=== PATIENT | male | born 2000 | race Caucasian/White ===

== ENCOUNTER 2022-06-01 10:26 | Emergency (ER) | payer OTHER ==
--- NOTE | 2022-06-01 11:25 | XR ---
EXAMINATION TYPE: XR chest 2V DATE OF EXAM: 06/01/2022 10:46 AM COMPARISON: Chest radiographs from TECHNIQUE: XR chest 2V Frontal and lateral views of the chest. CLINICAL INDICATION:Male, 22 years old with history of Cough; FINDINGS: Lungs/Pleura: There is no evidence of pleural effusion, focal consolidation, or pneumothorax. Pulmonary vascularity: Unremarkable. Heart/mediastinum: Cardiomediastinal silhouette is unremarkable. Musculoskeletal: No acute osseous pathology. IMPRESSION: No acute cardiopulmonary disease/process.
[2022-06-01] MEDS ORDERED: IPRATROPIUM-ALBUTEROL 3 ML NEB INHALATION STA (11:48)
--- NOTE | 2022-06-01 12:31 | ED ---
General Adult HPI - General Chief complaint: Upper Respiratory Infection Stated complaint: chest pain Time Seen by Provider: 06/01/22 11:09 Source: patient, RN notes reviewed Mode of arrival: ambulatory Limitations: no limitations - History of Present Illness Initial comments: 22-year-old male presents emergency Department chief complaint of cough conges tion shortness breath. Patient states been sick last few days. Patient states it's worse when he smokes or take a deep inspiration. Patient states he [place], smokes cigarettes, smokes marijuana. Patient states he has pain in his ribs when he takes deep breath denies any leg pain No abdominal complaints. - Related Data Previous Rx's Medication Instructions Recorded Albuterol Sulfate [Proair Hfa] 1 - 2 puff INHALATION Q4HR PRN 06/01/22 #8.5 gm Azithromycin [Zithromax Z Pack] 0 tab PO DIRECTED #6 tab 06/01/22 predniSONE 50 mg PO DAILY #5 tab 06/01/22 Allergies Allergy/AdvReac Type Severity Reaction Status Date / Time No Known Allergies Allergy Verified 06/01/22 10:30 Review of Systems ROS Statement: Those systems with pertinent positive or pertinent negative responses have been documented in the HPI. ROS Other: All systems not noted in ROS Statement are negative. Past Medical History Past Medical History: No Reported History History of Any Multi-Drug Resistant Organisms: None Reported Past Surgical History: No Surgical Hx Reported Past Psychological History: No Psychological Hx Reported Smoking Status: Current every day smoker Past Alcohol Use History: None Reported Past Drug Use History: Marijuana General Exam Limitations: no limitations General appearance: alert, in no apparent distress Head exam: Present: atraumatic, normocephalic, normal inspection Eye exam: Present: normal appearance, PERRL, EOMI. Absent: scleral icterus, conjunctival injection, periorbital swelling ENT exam: Present: normal exam, normal oropharynx, mucous membranes moist Neck exam: Present: normal inspection, full ROM. Absent: tenderness, meningismus, lymphadenopathy Respiratory exam: Present: wheezes, chest wall tenderness. Absent: normal lung sounds bilaterally, respiratory distress, rales, rhonchi, stridor Cardiovascular Exam: Present: regular rate, normal rhythm, normal heart sounds. Absent: systolic murmur, diastolic murmur, rubs, gallop, clicks Course Vital Signs 06/01/22 06/01/22 06/01/22 10:28 12:10 12:23 Temperature 98 F Pulse Rate 83 74 80 Respiratory 20 Rate Blood Pressure 132/77 O2 Sat by Pulse 97 Oximetry Medical Decision Making - Medical Decision Making Chest x-rays unremarkable. Patient has diffuse wheezing consistent with acute bronchitis. patient for smoking cessation for greater than 3 minutes patient was discharged on prednisone, albuterol, azithromycin. - Lab Data Lab Results 06/01/22 Range/Units 10:31 Coronavirus (PCR) Not Detected (Not Detectd) Disposition Clinical Impression: Acute bronchitis with bronchospasm Disposition: HOME SELF-CARE Condition: Stable Instructions (If sedation given, give patient instructions): Upper Respiratory Infection (ED) Additional Instructions: Please return to the Emergency Department if symptoms worsen or any other concerns. Prescriptions: predniSONE 50 mg PO DAILY #5 tab Albuterol Sulfate [Proair Hfa] 1 - 2 puff INHALATION Q4HR PRN #8.5 gm PRN Reason: difficulty in breathing Azithromycin [Zithromax Z Pack] 0 tab PO DIRECTED #6 tab Is patient prescribed a controlled substance at d/c from ED?: No Referrals: Hemanth Downs MD [Primary Care Provider] - 1-2 days Time of Disposition: 12:31
[2022-06-01 13:23] VITALS: BP 125/72; PULSE 75; RESP 18; TEMP 98.4
== END 2022-06-01 13:23 | disposition home or self-care (01) ==
LOC: EC 10:26
DX: J98.01 Acute bronchospasm (principal); Z20.822 Contact with and (suspected) exposure to COVID-19; F17.210 Nicotine dependence, cigarettes, uncomplicated
CPT/HCPCS: 71046; 87635; 94640; 99285

== ENCOUNTER 2023-01-03 21:38 | Emergency (ER) | payer OTHER ==
[2023-01-03 21:41] VITALS: PULSE 92; RESP 18; TEMP 98.9
[2023-01-03] MEDS ORDERED: KETOROLAC 15 MG/ML 1 ML VIAL IM STA (22:49)
--- NOTE | 2023-01-03 22:49 | ED ---
ENT HPI - General Chief complaint: Dental/Oral Stated complaint: Abcess in mouth Time Seen by Provider: 01/03/23 22:37 Source: patient, RN notes reviewed Mode of arrival: ambulatory Limitations: no limitations - History of Present Illness Initial comments: Patient is a 22-year-old male presenting to the emergency room with complaints of dental pain and swelling along with eye swelling that has been going on for approximately 24-48 hours with significant worsening throughout the day today. He reports known dental cavities with lack of dental follow-up. He is not currently on any antibiotic therapy for dental abscess. He reports nausea and vomiting associated with his pain and dental swelling. He denies any difficulty chewing or swallowing. He denies any chest pain, abdominal pain, headache, dizziness, fevers, chills, blurred or double vision. He denies any significant past medical history. - Related Data Previous Rx's Medication Instructions Recorded Albuterol Sulfate [Proair Hfa] 1 - 2 puff INHALATION Q4HR PRN 06/01/22 #8.5 gm Azithromycin [Zithromax Z Pack] 0 tab PO DIRECTED #6 tab 06/01/22 predniSONE 50 mg PO DAILY #5 tab 06/01/22 Allergies Allergy/AdvReac Type Severity Reaction Status Date / Time No Known Allergies Allergy Verified 01/03/23 21:38 Review of Systems ROS Statement: Those systems with pertinent positive or pertinent negative responses have been documented in the HPI. ROS Other: All systems not noted in ROS Statement are negative. Past Medical History Past Medical History: No Reported History History of Any Multi-Drug Resistant Organisms: None Reported Past Surgical History: No Surgical Hx Reported Past Psychological History: No Psychological Hx Reported Smoking Status: Current every day smoker Past Alcohol Use History: None Reported Past Drug Use History: Marijuana General Exam Limitations: no limitations General appearance: alert, in no apparent distress Head exam: Present: atraumatic, normocephalic, normal inspection Eye exam: Present: normal appearance, PERRL, EOMI, periorbital swelling (lower right). Absent: scleral icterus, conjunctival injection, nystagmus Expanded Teeth exam: Present: dental caries, fractured tooth # (Multiple upper and lower), dental tenderness # (Right upper first bicuspid region), gingival enlargement, other (Gingival abscess with purulent drainage from right upper gum. Foul odor noted.) Neck exam: Present: normal inspection, full ROM, lymphadenopathy. Absent: tenderness Respiratory exam: Present: normal lung sounds bilaterally. Absent: respiratory distress, wheezes, rales, rhonchi, stridor Cardiovascular Exam: Present: regular rate, normal rhythm, normal heart sounds. Absent: systolic murmur, diastolic murmur, rubs, gallop, clicks GI/Abdominal exam: Present: soft, normal bowel sounds. Absent: distended, tenderness, guarding, rebound, rigid Extremities exam: Present: normal inspection. Absent: pedal edema, joint swelling Back exam: Present: normal inspection Neurological exam: Present: alert, oriented X3, CN II-XII intact Psychiatric exam: Present: normal affect, normal mood Skin exam: Present: other (Oral abnormalities as stated above) Course Vital Signs 01/03/23 01/04/23 21:38 01:30 Temperature 98.9 F Pulse Rate 92 92 Respiratory 18 Rate Blood Pressure 139/85 143/94 O2 Sat by Pulse 99 99 Oximetry Medical Decision Making - Medical Decision Making Was pt. sent in by a medical professional or institution (, PA, INK BLENDER, urgent care, hospital, or long term...) When possible be specific @ -No Did you speak to anyone other than the patient for history (EMS, parent, family, police, friend...)? What history was obtained from this source @ -No Did you review nursing and triage notes (agree or disagree)? Why? @ -I reviewed and agree with nursing and triage notes Were old charts reviewed (outside hosp., previous admission, EMS record, old EKG, old radiological studies, urgent care reports/EKG's, long term records)? Report findings @ -No old charts were reviewed Differential Diagnosis (chest pain, altered mental status, abdominal pain women, abdominal pain men, vaginal bleeding, weakness, fever, dyspnea, syncope, headache, dizziness, GI bleed, back pain, seizure, CVA, palpatations, mental health, musculoskeletal)? @ -Differential Dental Pain: Gingivitis, dental abscess, gingivitis abscess, acute pulpitis, dental caries, tooth fracture, impacted molar, toothache, acute necrotizing ulcerative gingivitis, oral herpes simplex infection, candidiasis of the mouth, aphyhous ulcer... this is not meant to be an all-inclusive list. EKG interpreted by me (3pts min.). @ -None done X-rays interpreted by me (1pt min.). @ -None done CT interpreted by me (1pt min.). @ -CT of sinuses: Extensive peritonsillar disease with periapical changes to first bicuspid.. Nasal sinus disease of the right maxillary. Per radiologist report osseous erosion of medial ridge noted. U/S interpreted by me (1pt. min.). @ -None done What testing was considered but not performed or refused? (CT, X-rays, U/S, labs)? Why? @ -None What meds were considered but not given or refused? Why? @ -None Did you discuss the management of the patient with other professionals (professionals i.e. DrKlaus, PA, INK BLENDER, lab, RT, psych nurse, high school social studies teacher, obgyn nurse, teacher, chief information security officer, casework specialist)? Give summary @ -Yes spoke with Dr. Swan regarding osseous erosion and dental abscess recommending admission. He is requesting oral surgeon consult and exceptions prior to admission acceptance. Spoke with Dr. Peoples on for oral surgery who is accepting of consult and admission. We'll place admission orders with consult to oral surgery. He advised okay to continue IV clindamycin at this time. Was smoking cessation discussed for >3mins.? @ -No Was critical care preformed (if so, how long)? @ -No Were there social determinants of health that impacted care today? How? (Homelessness, low income, unemployed, alcoholism, drug addiction, transportation, low edu. Level, literacy, decrease access to med. care, skilled nursing, rehab)? @ -No Was there de-escalation of care discussed even if they declined (Discuss DNR or withdrawal of care, Hospice)? DNR status @ -No What co-morbidities impacted this encounter? (DM, HTN, Smoking, COPD, CAD, Cancer, CVA, ARF, Chemo, Hep., AIDS, mental health diagnosis, sleep apnea, morbid obesity)? @ -None Was patient admitted / discharged? Hospital course, mention meds given and route, prescriptions, significant lab abnormalities, going to OR and other pertinent info. @ -22-year-old male presented to the emergency room with complaints of dental pain and right-sided facial swelling ongoing for 24-48 hours with associated nausea. Extensive tooth decay and draining. Apical abscess to right upper bicuspid region noted. Due to lower orbit edema will proceed with computed tomography scan of the sinuses and give IV clindamycin along with Toradol for pain and swelling. Computed tomography scan demonstrates periodontal disease with periapical tooth abscess and osseous erosion of the medial ridge along with peristernal disease. CBC with slightly elevated hematocrit 38.8 otherwise no abnormalities, BMP normal. Advise due to osseous erosion recommended admission for IV antibiotics and oral surgeon consult. Patient is apprehensive about staying in the hospital but agreeable. Having nausea and vomiting will give Zofran for nausea. Spoke with Dr. Swan regarding admission he advise consult to oral surgery for acceptance first prior to admission. Oral surgeon except consult and admission. Will admit patient in stable condition for dental abscess to medical surgical unit under Dr. Swan with oral surgery consult. Undiagnosed new problem with uncertain prognosis? @ -No Drug Therapy requiring intensive monitoring for toxicity (Heparin, Nitro, Insulin, Cardizem)? @ -No Were any procedures done? @ -No Diagnosis/symptom? @ -Periapical tooth abscess right first bicuspid Acute, or Chronic, or Acute on Chronic? @ -Acute Uncomplicated (without systemic symptoms) or Complicated (systemic symptoms)? @ -Complicated Side effects of treatment? @ -No Exacerbation, Progression, or Severe Exacerbation? @ -No Poses a threat to life or bodily function? How? (Chest pain, [place], [place], pneumonia, PE, COPD, DKA, ARF, appy, cholecystitis, CVA, Diverticulitis, Homicidal, Suicidal, threat to staff... and all critical care pts) @ -Yes, risk for further osseous erosion, osteomyelitis and septic shock. Case discussed with Dr. Armstrong. - Lab Data Result diagrams: 01/03/23 23:30 01/03/23 23:30 Lab Results 01/03/23 01/03/23 Range/Units 23:30 23:30 WBC 8.0 (3.8-10.6) k/uL RBC 4.37 (4.30-5.90) m/uL Hgb 13.2 (13.0-17.5) gm/dL Hct 38.8 L (39.0-53.0) % MCV 88.7 (80.0-100.0) fL MCH 30.2 (25.0-35.0) pg MCHC 34.1 (31.0-37.0) g/dL RDW 12.5 (11.5-15.5) % Plt Count 218 (150-450) k/uL MPV 7.2 Neutrophils % 70 % Lymphocytes % 22 % Monocytes % 5 % Eosinophils % 1 % Basophils % 0 % Neutrophils # 5.6 (1.3-7.7) k/uL Lymphocytes # 1.8 (1.0-4.8) k/uL Monocytes # 0.4 (0-1.0) k/uL Eosinophils # 0.1 (0-0.7) k/uL Basophils # 0.0 (0-0.2) k/uL Sodium 139 (137-145) mmol/L Potassium 4.2 (3.5-5.1) mmol/L Chloride 104 (98-107) mmol/L Carbon Dioxide 25 (22-30) mmol/L Anion Gap 10 mmol/L BUN 17 (9-20) mg/dL Creatinine 0.91 (0.66-1.25) mg/dL Est GFR (CKD-EPI)AfAm >90 (>60 ml/min/1.73 sqM) Est GFR (CKD-EPI)NonAf >90 (>60 ml/min/1.73 sqM) Glucose 86 (74-99) mg/dL Calcium 9.2 (8.4-10.2) mg/dL - Radiology Data Radiology results: report reviewed, image reviewed Disposition Clinical Impression: Dental abscess Disposition: [facility]MITTED [facility] TO [facility] Condition: Stable Is patient prescribed a controlled substance at d/c from ED?: No Time of Disposition: 03:01
[2023-01-03] MEDS ORDERED: CLINDAMYCIN 900 MG in DEXTROSE 5% IN WATER 50 ML IVPB ONE ×2 (23:00)
--- NOTE | 2023-01-03 23:27 | CT ---
EXAMINATION TYPE: CT sinus wo con CT DLP: 371.4 mGycm, Automated exposure control for dose reduction was used. DATE OF EXAM: 01/03/2023 11:02 PM COMPARISON: None. CLINICAL INDICATION:Male, 22 years old with history of dental abscess, dental abscess TECHNIQUE: Multiple thin axial images were obtained through the paranasal sinuses without the use of IV contrast. Additional coronal and sagittal reformatted images were submitted for evaluation. Contrast used: none Oral contrast used: none FINDINGS: The frontal sinuses and frontal ethmoidal recesses are clear. There is mild mucosal thickening of the left maxillary sinus. The sphenoid sinuses are relatively clear. Mild scattered ethmoidal air cell m ucosal thickening. Right maxillary sinus demonstrates significant mucosal thickening with multiple periapical lucencies of the roots of the teeth predominantly in the right upper maxilla alveolar ridge. One tooth in parti cular the right upper first bicuspid demonstrates significant periapical lucency with osseous erosion extending through the maxilla alveolar ridge. Evaluation for organizing fluid collection limited wit hout IV contrast. Suspected phlegmonous change and early abscess formation on series 201 image 14. Th ere is fat stranding changes involving the right cheek. There is periapical lucency involving the fir st bicuspid on the left upper ridge with osseous erosion through the fibular ridge into the soft tiss ues. No obvious organizing fluid collection on this left upper side. The remaining visualized portions of the brain are grossly unremarkable. IMPRESSION: 1. Periodontal disease with periapical lucency involving the right upper first bicuspid with osseous erosion through the medial ridge likely representing periapical tooth abscess. Evaluation for absces s is limited without IV contrast. Additional scattered parenchymal disease. Dental consultation recom mended. 2. Paranasal sinus disease predominantly involving the right maxilla likely secondary to #1.
[2023-01-03 23:52] LABS: Basophils % (A) 0 %; Eosinophils # (A) 0.1 k/uL (0-0.7); Eosinophils % (A) 1 %; HCT 38.8 % (39.0-53.0); HGB 13.2 gm/dL (13.0-17.5); Lymphocytes # (A) 1.8 k/uL (1.0-4.8); Lymphocytes % (A) 22 %; MCH 30.2 pg (25.0-35.0); MCHC 34.1 g/dL (31.0-37.0); MCV 88.7 fL (80.0-100.0); Mean Platelet Volume 7.2; Monocytes # (A) 0.4 k/uL (0-1.0); Monocytes % (A) 5 %; Neutrophils # (A) 5.6 k/uL (1.3-7.7); Neutrophils % (A) 70 %; Platelet Count 218 k/uL (150-450); RBC 4.37 m/uL (4.30-5.90); RDW 12.5 % (11.5-15.5)
[2023-01-04 00:06] LABS: African American GFR (CKD) >90 (>60 ml/min/1.73 sqM); Anion Gap 10 mmol/L; Blood Urea Nitrogen 17 mg/dL (9-20); Calcium 9.2 mg/dL (8.4-10.2); Carbon Dioxide 25 mmol/L (22-30); Chloride 104 mmol/L (98-107); Glucose 86 mg/dL (74-99); Non-African American GFR(CKD) >90 (>60 ml/min/1.73 sqM); Potassium 4.2 mmol/L (3.5-5.1); Sodium 139 mmol/L (137-145)
[2023-01-04] MEDS ORDERED: ONDANSETRON 4 MG/2 ML VIAL IVP STA (01:45)
[2023-01-04] MEDS ORDERED: NALOXONE 0.4 MG/ML 1 ML VIAL IV PRN (03:01)
[2023-01-04] MEDS ORDERED: IBUPROFEN 400 MG TAB PO PRN (03:01)
[2023-01-04] MEDS ORDERED: ONDANSETRON 4 MG/2 ML VIAL IVP PRN (03:01)
[2023-01-04] MEDS ORDERED: KETOROLAC 15 MG/ML 1 ML VIAL IVP PRN (03:01)
[2023-01-04 04:27] VITALS: BP 129/82
[2023-01-04] MEDS ORDERED: CLINDAMYCIN 600 MG/50 ML-D5W 600 MG in DEXTROSE/WATER 1 50ML.BAG IVPB SCH (06:00)
== END 2023-01-04 05:23 | disposition left against medical advice (07) ==
LOC: EC 21:38 → UNDOADMIN 01-04 03:03 → 5NMEDONC 01-04 03:03 → UNDODISIN 01-04 05:23 → EC 01-04 05:23
DX: K04.7 Periapical abscess without sinus (principal); F17.200 Nicotine dependence, unspecified, uncomplicated; F12.90 Cannabis use, unspecified, uncomplicated; Z53.29 Procedure and treatment not carried out because of patient's decision for other reasons
CPT/HCPCS: 96365 ×2; 96372 ×2; 96375 ×2; 99284 ×2; 36415; 80048; 85025; 70486; J2405; J1885